=== PATIENT | male | born 1935 | race Caucasian/White ===

== ENCOUNTER 2020-09-04 12:30 | Emergency (ER) | payer OTHER ==
--- OUTSIDE RECORDS SUMMARY | 2020-09-04 12:32 | XMS REPORT | Continuity of Care Document ---
:[address] [facility] t Address [address] [place] [address] Care Team Providers Name Role Phone Unavailable Unavailable Unavailable Payers Payer Name Policy Type Policy Number Effective Date Expiration Date S ource Problems This patient has no known problems. Allergies, Adverse Reactions, Alerts Allergy Allergy Status Severity Reaction(s) Onset Inactive Treating Comm ents Source Name Type Date Date Clinician erythrom DA [facility] [place] 00:[facility]: [address] [place] Active [place] [facility] ins 4-13 [place] 00:00: [address] [place] [facility] 4-13 Clear 00:00: [address] azithrom [place] [facility] 4-[facility] Clear 00:00: [address] Medications This patient has no known medications. Procedures This patient has no known procedures. Results Test Description Test Time Test Comments Results Result Comments Source BASIC METABOLIC PANEL 2020-03-01 05:38:00 Test Item Value Reference Range Interpretation Comme nts SODIUM (test code = NA) 136 MMOL/L 137-145 L POTASSIUM (test code = K) 4.0 MMOL/L 3.5-5.1 N CHLORIDE (test code = CL) 108 MMOL/L 98-107 H CARBON DIOXIDE (test code = CO2) 23 MMOL/L 22-30 N ANION GAP (test code = GAP) 9 MMOL/L 14-24 L GLUCOSE (test code = GLU) 103 MG/DL 74-106 N BLOOD UREA NITROGEN (test code = 19 MG/DL 9-20 BUN) GLOMERULAR FILTRATION RATE (test > 60 Reporting units: ml/min/1.73 code = GFR) m2 (Modified M DRD Formula)Referen ce Range: > or = 60 ml/min/1.7 3 m2 CREATININE (test code = CREAT) 1.10 MG/DL 0.66-1.25 N CALCIUM (test code = CA) 9.2 MG/DL 8.4-10.2 N BASIC METABOLIC [id number] 05:20:00 Test Item Value Reference Range Interpretation Comments SODIUM (test code = 136 MMOL/L 137-145 L NA) POTASSIUM (test code = 4.0 MMOL/L 3.5-5.1 N K) CHLORIDE (test code = 108 MMOL/L 98-107 H CL) CARBON DIOXIDE (test MMOL/L 22-30 code = CO2) GLUCOSE (test code = MG/DL 74-106 GLU) BLOOD UREA NITROGEN MG/DL 9-20 (test code = BUN) GLOMERULAR FILTRATION > 60 Report ing units: RATE (test code = GFR) ml/mi n/1.73 m2 (Modified MDRD Formula)Referen ce Range: > or = 6 0 ml/min/1.73 m2 CREATININE (test code 1.10 MG/DL 0.66-1.25 N = CREAT) CALCIUM (test code = MG/DL 8.7-9.7 CA) BASIC METABOLIC [id number] 05:18:00 Test Item Value Reference Range Interpretation Comments SODIUM (test code = NA) 136 MMOL/L 137-145 L POTASSIUM (test code = K) 4.0 MMOL/L 3.5-5.1 N CHLORIDE (test code = CL) 108 MMOL/L 98-107 H CARBON DIOXIDE (test code = CO2) MMOL/L 22-30 GLUCOSE (test code = GLU) MG/DL 74-106 BLOOD UREA NITROGEN (test code = MG/DL 9-20 BUN) GLOMERULAR FILTRATION RATE (test code = GFR) CREATININE (test code = CREAT) MG/DL 0.66-1.25 CALCIUM (test code = CA) MG/DL 8.7-9.7 BASIC METABOLIC [id number] 05:17:00 Test Item Value Reference Range Interpretation Comments SODIUM (test code = NA) 136 MMOL/L 137-145 L POTASSIUM (test code = K) MMOL/L 3.5-5.1 CHLORIDE (test code = CL) 108 MMOL/L 98-107 H CARBON DIOXIDE (test code = CO2) MMOL/L 22-30 GLUCOSE (test code = GLU) MG/DL 74-106 BLOOD UREA NITROGEN (test code = MG/DL 9-20 BUN) GLOMERULAR FILTRATION RATE (test code = GFR) CREATININE (test code = CREAT) MG/DL 0.66-1.25 CALCIUM (test code = CA) MG/DL 8.7-9.7 CBC W/AUTO [id number] 04:58:00 Test Item Value Reference Range Interpretation Comments WHITE BLOOD CELL (test code = 8.8 K/MM3 3.8-9.8 N WBC) RED BLOOD CELL (test code = 4.12 M/MM3 3.95-5.67 N RBC) HEMOGLOBIN (test code = HGB) 13.1 G/DL 12.4-16.7 N HEMATOCRIT (test code = HCT) 39.2 % 35.9-49.5 N MEAN CELL VOLUME (test code = 95 fL 81.7-96.1 N MCV) MEAN CELL HGB (test code = MCH) 31.8 pg 27.6-33.2 N MEAN CELL HGB CONCETRATION 33.4 % 32.9-35.5 N (test code = MCHC) RED CELL DISTRIBUTION WIDTH 12.7 % 12.1-15.2 N (test code = RDW) PLATELET COUNT (test code = 242 K/MM3 129-368 N PLT) MEAN PLATELET VOLUME (test code 10.6 fl 7.4-10.4 H = MPV) NEUTROPHIL % (test code = NT%) 74.6 % 43-75 N IMMATURE GRANULOCYTE % (test 0.3 % 0.0-2.0 N code = IG%) LYMPHOCYTE % (test code = LY%) 13.1 % 14-44 L MONOCYTE % (test code = MO%) 9.7 % 4-13 N EOSINOPHIL % (test code = EO%) 2.0 % 0-6 N BASOPHIL % (test code = BA%) 0.3 % 0-2 N NUCLEATED RBC % (test code = 0.0 % 0-1.0 N NRBC%) NEUTROPHIL # (test code = NT#) 6.58 K/mm3 2.0-7.6 N IMMATURE GRANULOCYTE # (test 0.03 x10 3/uL 0-0.03 N code = IG#) LYMPHOCYTE # (test code = LY#) 1.16 K/mm3 1.0-3.8 N MONOCYTE # (test code = MO#) 0.86 K/mm3 0.1-0.8 H EOSINOPHIL # (test code = EO#) 0.18 K/mm3 0.0-0.2 N BASOPHIL # (test code = BA#) 0.03 K/mm3 0.0-0.2 N NUCLEATED RBC # (test code = 0.00 K/mm3 0.0-0.1 N NRBC#) [id number] 09:58:00 Test Item Value Reference Range Interpretation Comments ACT-ISTAT (test code = ACTI) 213 SEC 74-137 H PROTHROMBIN [id number] 08:18:00 Test Item Value Reference Range Interpretation Comments PROTHROMBIN TIME 12.1 SECONDS 9.4-12.5 N PATIENT (test code = PTP) INTERNATIONAL NORMAL 1.1 The INR is to be RATIO (test code = used only for INR) monitoring oral anticoagulantth erap y. INDICATION I NR VALUE ---- ---- ---- -------1. Prophylaxis, de ep venous thrombos is, including hig h risk surgery. 2.0 - 3.0 2. Prophylaxis, de ep venous thrombos is, hip surgery, treatment for d eep venous thrombosis or pulmonary prevention of systemic emboli sm in patients wit h valvular heart disease, atrial fibrillation, tissue heart va lve, or acute myocar dial infarction. 2.0 - 3 .0 3. Mechanical prosthesis hear t valves, recurrent syste gloria embolism. 3.0 - 4.5 PTT [id number] 08:18:00 Test Item Value Reference Range Interpretation Comments PTT ACTIVATED (test code = APTT) 16.6 SECONDS 25.1-36.5 L BASIC METABOLIC [id number] 07:23:00 Test Item Value Reference Range Interpretation Comments SODIUM (test code = 138 MMOL/L 137-145 N NA) POTASSIUM (test code = 4.3 MMOL/L 3.5-5.1 N K) CHLORIDE (test code = 105 MMOL/L 98-107 N CL) CARBON DIOXIDE (test 26 MMOL/L 22-30 N code = CO2) GLUCOSE (test code = 113 MG/DL 74-106 H GLU) BLOOD UREA NITROGEN 25 MG/DL 9-20 H (test code = BUN) GLOMERULAR FILTRATION 57 Report ing units: RATE (test code = GFR) ml/mi n/1.73 m2 (Modified MDRD Formula)Referen ce Range: > or = 6 0 ml/min/1.73 m2 CREATININE (test code 1.20 MG/DL 0.66-1.25 N = CREAT) CALCIUM (test code = 9.2 MG/DL 8.4-10.2 N CA) LIPID PROFILE (CORONARY RISK)2020-02-29 07:23:00 Test Item Value Reference Range Interpretation Comments TRIGLYCERIDES (test 137 MG/DL TRIGLYCE RIDES code = TRIG) REFERENCE RANGE:Normal: < 150 mg/dLBorderline High: 150-199 mg/dLHi gh: 200-499 mg/dLVe ry High: >=500 mg/ dL CHOLESTEROL (test code 217 MG/DL <200 = CHOL) HDL CHOLESTEROL (test 51 MG/DL 40-59 N code = HDL) LIPOPROTEIN LDL (test 150 MG/DL 0-99 H code = LDL) OPTIMAL........ .<100 mg/dLNEAR OPTIMAL/ABOVE OPTIMAL........ .100-12 9 mg/dL BORDERLINE HIGH.........13 0-159 mg/dL HIGH.........16 0-189 mg/dL VERY HIGH...... ...>/= 190 mg/dL [id number] 07:23:00 Test Item Value Reference Range Interpretation Comments MAGNESIUM (test code = MAG) 2.1 MG/DL 1.6-2.3 N BASIC METABOLIC [id number] 07:13:00 Test Item Value Reference Range Interpretation Comments SODIUM (test code = 138 MMOL/L 137-145 N NA) POTASSIUM (test code = 4.3 MMOL/L 3.5-5.1 N K) CHLORIDE (test code = 105 MMOL/L 98-107 N CL) CARBON DIOXIDE (test 26 MMOL/L 22-30 N code = CO2) GLUCOSE (test code = 113 MG/DL 74-106 H GLU) BLOOD UREA NITROGEN 25 MG/DL 9-20 H (test code = BUN) GLOMERULAR FILTRATION 57 Report ing units: RATE (test code = GFR) ml/mi n/1.73 m2 (Modified MDRD Formula)Referen ce Range: > or = 6 0 ml/min/1.73 m2 CREATININE (test code 1.20 MG/DL 0.66-1.25 N = CREAT) CALCIUM (test code = 9.2 MG/DL 8.4-10.2 N CA) LIPID PROFILE (CORONARY RISK)2020-02-29 07:13:00 Test Item Value Reference Range Interpretation Comments TRIGLYCERIDES (test 137 MG/DL TRIGLYCE RIDES code = TRIG) REFERENCE RANGE:Normal: < 150 mg/dLBorderline High: 150-199 mg/dLHi gh: 200-499 mg/dLVe ry High: >=500 mg/ dL CHOLESTEROL (test code 217 MG/DL <200 = CHOL) HDL CHOLESTEROL (test 51 MG/DL 40-59 N code = HDL) LIPOPROTEIN LDL (test MG/DL 0-99 code = LDL) [id number] 07:13:00 Test Item Value Reference Range Interpretation Comments MAGNESIUM (test code = MAG) 2.1 MG/DL 1.6-2.3 N BASIC METABOLIC [id number] 07:12:00 Test Item Value Reference Range Interpretation Comments SODIUM (test code = 138 MMOL/L 137-145 N NA) POTASSIUM (test code = 4.3 MMOL/L 3.5-5.1 N K) CHLORIDE (test code = 105 MMOL/L 98-107 N CL) CARBON DIOXIDE (test 26 MMOL/L 22-30 N code = CO2) GLUCOSE (test code = 113 MG/DL 74-106 H GLU) BLOOD UREA NITROGEN 25 MG/DL 9-20 H (test code = BUN) GLOMERULAR FILTRATION 57 Report ing units: RATE (test code = GFR) ml/mi n/1.73 m2 (Modified MDRD Formula)Referen ce Range: > or = 6 0 ml/min/1.73 m2 CREATININE (test code 1.20 MG/DL 0.66-1.25 N = CREAT) CALCIUM (test code = 9.2 MG/DL 8.4-10.2 N CA) LIPID PROFILE (CORONARY RISK)2020-02-29 07:12:00 Test Item Value Reference Range Interpretation Comments TRIGLYCERIDES (test 137 MG/DL TRIGLYCE RIDES code = TRIG) REFERENCE RANGE:Normal: < 150 mg/dLBorderline High: 150-199 mg/dLHi gh: 200-499 mg/dLVe ry High: >=500 mg/ dL CHOLESTEROL (test code 217 MG/DL <200 = CHOL) HDL CHOLESTEROL (test MG/DL 40-59 code = HDL) LIPOPROTEIN LDL (test MG/DL 0-99 code = LDL) [id number] 07:12:00 Test Item Value Reference Range Interpretation Comments MAGNESIUM (test code = MAG) 2.1 MG/DL 1.6-2.3 N BASIC METABOLIC [id number] 07:11:00 Test Item Value Reference Range Interpretation Comments SODIUM (test code = 138 MMOL/L 137-145 N NA) POTASSIUM (test code = 4.3 MMOL/L 3.5-5.1 N K) CHLORIDE (test code = 105 MMOL/L 98-107 N CL) CARBON DIOXIDE (test MMOL/L 22-30 code = CO2) GLUCOSE (test code = MG/DL 74-106 GLU) BLOOD UREA NITROGEN MG/DL 9-20 (test code = BUN) GLOMERULAR FILTRATION 57 Report ing units: RATE (test code = GFR) ml/mi n/1.73 m2 (Modified MDRD Formula)Referen ce Range: > or = 6 0 ml/min/1.73 m2 CREATININE (test code 1.20 MG/DL 0.66-1.25 N = CREAT) CALCIUM (test code = MG/DL 8.7-9.7 CA) LIPID PROFILE (CORONARY RISK)2020-02-29 07:11:00 Test Item Value Reference Range Interpretation Comments TRIGLYCERIDES (test code = TRIG) MG/DL CHOLESTEROL (test code = CHOL) 217 MG/DL <200 HDL CHOLESTEROL (test code = HDL) MG/DL 40-59 LIPOPROTEIN LDL (test code = LDL) MG/DL 0-99 [id number] 07:11:00 Test Item Value Reference Range Interpretation Comments MAGNESIUM (test code = MAG) MG/DL 1.6-2.3 BASIC METABOLIC [id number] 07:09:00 Test Item Value Reference Range Interpretation Comments SODIUM (test code = NA) 138 MMOL/L 137-145 N POTASSIUM (test code = K) 4.3 MMOL/L 3.5-5.1 N CHLORIDE (test code = CL) 105 MMOL/L 98-107 N CARBON DIOXIDE (test code = CO2) MMOL/L 22-30 GLUCOSE (test code = GLU) MG/DL 74-106 BLOOD UREA NITROGEN (test code = MG/DL 9-20 BUN) GLOMERULAR FILTRATION RATE (test code = GFR) CREATININE (test code = CREAT) MG/DL 0.66-1.25 CALCIUM (test code = CA) MG/DL 8.7-9.7 LIPID PROFILE (CORONARY RISK)2020-02-29 07:09:00 Test Item Value Reference Range Interpretation Comments TRIGLYCERIDES (test code = TRIG) MG/DL CHOLESTEROL (test code = CHOL) MG/DL <200 HDL CHOLESTEROL (test code = HDL) MG/DL 40-59 LIPOPROTEIN LDL (test code = LDL) MG/DL 0-99 [id number] 07:09:00 Test Item Value Reference Range Interpretation Comments MAGNESIUM (test code = MAG) MG/DL 1.6-2.3 Novel Coronavirus 07:06:00 Test Item Value Reference Range Interpretation Comments Novel Coronavirus Negative Negative Positive r esults are 2019 Inhouse (test indicativ e of the presence code = [id number]) ofSARS-CoV -2 RNA, clinical correlation wit h patient historyand othe r diagnostic info rmation is necessary to determinepatien t infection status. Positiv e results do not rule out bacterial infection or co -infection with other viru ses. Negative result s do not preclude SARS-C oV-2 infection andsh ould not be used as the marilyn e basis for patient managementdecis ions. Negative result s must be combined with otherclinical observations, p atient history, and epidemiological information . Detection of SARS-CoV-2 RNA may be affe cted bysample collec tion methods, storag e conditions, and /or stageof infection. Pauly l RNA mutations, vacc inations, antiviraltherap eutics, antibiotics, chemotherapeuti c orimmunosuppres jeronimo drugs have not been e valuated for effectson d etection. Results are for the identification of SARS-CoV-2 RNA usingthe Abel M2000 Sy stem under the FDA Emergen cy UseAuthorizatio n. The testing is perf ormed by personneltraine d in the procedures for the Abel M2000 molecular diagnostic SARS-CoV-2 assa y in vitro. Novel Coronavirus 07:06:00 Test Item Value Reference Range Interpretation Comments Novel Coronavirus Negative Negative Positive r esults are 2019 Inhouse (test indicativ e of the presence code = [id number]) ofSARS-CoV -2 RNA, clinical correlation wit h patient historyand othe r diagnostic info rmation is necessary to determinepatien t infection status. Positiv e results do not rule out bacterial infection or co -infection with other viru ses. Negative result s do not preclude SARS-C oV-2 infection andsh ould not be used as the marilyn e basis for patient managementdecis ions. Negative result s must be combined with otherclinical observations, p atient history, and epidemiological information . Detection of SARS-CoV-2 RNA may be affe cted bysample collec tion methods, storag e conditions, and /or stageof infection. Pauly l RNA mutations, vacc inations, antiviraltherap eutics, antibiotics, chemotherapeuti c orimmunosuppres jeronimo drugs have not been e valuated for effectson d etection. Results are for the identification of SARS-CoV-2 RNA usingthe Abel M2000 Sy stem under the FDA Emergen cy UseAuthorizatio n. The testing is perf ormed by personneltraine d in the procedures for the Abel M2000 molecular diagnostic SARS-CoV-2 assa y in vitro. CBC W/AUTO [id number] 07:02:00 Test Item Value Reference Range Interpretation Comments WHITE BLOOD CELL (test code = 7.1 K/MM3 3.8-9.8 N WBC) RED BLOOD CELL (test code = 4.07 M/MM3 3.95-5.67 N RBC) HEMOGLOBIN (test code = HGB) 12.9 G/DL 12.4-16.7 N HEMATOCRIT (test code = HCT) 39.1 % 35.9-49.5 N MEAN CELL VOLUME (test code = 96 fL 81.7-96.1 N MCV) MEAN CELL HGB (test code = MCH) 31.7 pg 27.6-33.2 N MEAN CELL HGB CONCETRATION 33.0 % 32.9-35.5 N (test code = MCHC) RED CELL DISTRIBUTION WIDTH 12.7 % 12.1-15.2 N (test code = RDW) PLATELET COUNT (test code = 242 K/MM3 129-368 N PLT) MEAN PLATELET VOLUME (test code 10.7 fl 7.4-10.4 H = MPV) NEUTROPHIL % (test code = NT%) 68.7 % 43-75 N IMMATURE GRANULOCYTE % (test 0.4 % 0.0-2.0 N code = IG%) LYMPHOCYTE % (test code = LY%) 19.2 % 14-44 N MONOCYTE % (test code = MO%) 9.3 % 4-13 N EOSINOPHIL % (test code = EO%) 1.8 % 0-6 N BASOPHIL % (test code = BA%) 0.6 % 0-2 N NUCLEATED RBC % (test code = 0.0 % 0-1.0 N NRBC%) NEUTROPHIL # (test code = NT#) 4.87 K/mm3 2.0-7.6 N IMMATURE GRANULOCYTE # (test 0.03 x10 3/uL 0-0.03 N code = IG#) LYMPHOCYTE # (test code = LY#) 1.36 K/mm3 1.0-3.8 N MONOCYTE # (test code = MO#) 0.66 K/mm3 0.1-0.8 N EOSINOPHIL # (test code = EO#) 0.13 K/mm3 0.0-0.2 N BASOPHIL # (test code = BA#) 0.04 K/mm3 0.0-0.2 N NUCLEATED RBC # (test code = 0.00 K/mm3 0.0-0.1 N NRBC#) Coronavirus 2019 nCoV [id number] 06:11:00 Test Item Value Reference Range Interpretation Comments Coronavirus 2019 nCoV Bedside (test Negative Negative code = COVNONPUIBED) Has this test been approved(Y/N)? YES
--- NOTE | 2020-09-04 13:30 | RAD REPORT ---
EXAM DESCRIPTION: CT - [id number] - 09/04/2020 12:58 pm CLINICAL HISTORY: Fall injury, facial injury, patient on anticoagulation therapy COMPARISON: None TECHNIQUE: Axial 5 mm thick images of the head were obtained. Axial 2 mm thick images of the cervic al spine were obtained with sagittal and coronal reconstruction images generated and reviewed. All CT scans are performed using dose optimization technique as appropriate and may include automated exposure control or mA/KV adjustment according to patient size. FINDINGS: No intracranial hemorrhage, mass, edema or acute intracranial finding. No suspicion for ac samantha infarction. No cortical edema or sulcal effacement. Atrophy and chronic ischemic changes are pres ent. Ventricles are in proportion to the amount of volume loss. Arterial and physiologic calcificatio ns are present. Mastoid air cells are clear. Globes, facial bones and sinuses are separately detailed . Severe degenerative change present at the dens C1 level. Degenerative in cystic changes are seen in t he dens. No fracture or pathologic change identifiable. 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 Moderate ly severe degenerative change from the same processes at C4-5. Wedge compression of C5-6 is present. Posterior wall height is preserved. No acute fracture line seen. This is probably chronic. Moderate s everity foraminal stenosis present at C5-6. The right lamina of C6 is disrupted with margins corticat ed. This could be postsurgical history that was not stated in the history or possibly an old trauma o r congenital variant. Central canal detail is inherently limited. No paraspinal mass or hematoma. IMPRESSION: Patient has atrophy and chronic ischemic change with no acute intracranial finding. Facial bones, sinuses and orbits are separately detailed. Severe cervical spine degenerative changes are present as detailed. Wedge compression of C5 is favore d to be chronic. An acute fracture line is not seen in the C5 vertebral body.
--- NOTE | 2020-09-04 13:32 | RAD REPORT ---
EXAM DESCRIPTION: CT - Facial Bones W/ Mpr - 09/04/2020 12:58 pm CLINICAL HISTORY: Fall, facial trauma COMPARISON: None. TECHNIQUE: Axial 2 millimeter thick images of the facial bones were obtained with sagittal and coron al reconstruction imaging. All CT scans are performed using dose optimization technique as appropriate and may include automated exposure control or mA/KV adjustment according to patient size. FINDINGS: Moderately large scalp hematoma is seen in the soft tissues overlying the Reidel bone. No foreign body seen. The underlying frontal bone and frontal sinuses are intact. Patient has nasal bon e fractures without significant distraction or angulation component. Right deviation of the nasal sep otto is present without a nasal septum fracture confirmed. Hemorrhagic material present in the nasal p assages. No other fracture changes identified. No air-fluid levels in the paranasal sinuses. Mastoid air cells are clear. No skullbase fracture. Globe and orbital contents show no suspicious findings. IMPRESSION: Moderately large frontal scalp hematoma with underlying frontal bone and sinus is intact . Comminuted nasal bone fractures without displacement or angulation of any measurable significance. Na jose luis septum deviation is present to the right without identifiable fracture.
[2020-09-04] MEDS ORDERED: FENTANYL CITR 100 MCG/2 ML ONE (14:05)
[2020-09-04] MEDS ORDERED: ONDANSETRON 4 MG/2 ML VIAL ONE (14:05)
--- NOTE | 2020-09-04 14:12 | EDPHYS ---
Physician Documentation [facility] Name: Wale Willson Age: 85 yrs Sex: Male : 1935 Arrival Date: 09/04/2020 Time: 12:40 Bed 4 Private MD: ED Physician Von Piña HPI: 09/04 12:48 This 85 yrs old Male presents to ER via EMS with complaints of Fall Injury. pm1 12:48 Details of fall: The patient fell from an upright position, while walking. Onset: The pm1 symptoms/episode began/occurred just prior to arrival. Associated injuries: The patient sustained nose and left hand. Severity of symptoms: in the emergency department the symptoms have improved. The patient has not experienced similar symptoms in the past. Patient was walking out to his patio and tripped on the doorsill. Patient landed with his hands out in front of him and hit his nose. reports that his nose was shifted to the left and the patient self reduced it at home. No LOC, headache, or neck pain. Patient arrived with C-collar. Historical: - Allergies: 12:45 PENICILLINS; ph 12:45 erythromycin base; ph 14:44 Codeine; ph - Home Meds: 12:47 Aspirin Oral [Active]; Plavix Oral [Active]; ph - PMHx: 12:45 Hypertension; Hyperlipidemia; ph - Immunization history: Last tetanus immunization: unknown. - Social history:: Smoking status: Patient denies any tobacco usage or history of. ROS: 12:52 Constitutional: Negative for fever, chills, and weight loss, Eyes: Negative for injury, pm1 pain, redness, and discharge, Neck: Negative for injury, pain, and swelling. 12:52 Cardiovascular: Negative for chest pain, palpitations, and edema, Respiratory: Negative for shortness of breath, cough, wheezing, and pleuritic chest pain, Abdomen/GI: Negative for abdominal pain, nausea, vomiting, diarrhea, and constipation, Back: Negative for injury and pain, MS/Extremity: Negative for injury and deformity, Skin: Negative for injury, rash, and discoloration, Neuro: Negative for headache, weakness, numbness, tingling, and seizure. 12:52 ENT: Positive for swelling to nose and abrasions on bridge, Negative for ear pain, dental pain, pain. Exam: 12:52 Constitutional: This is a well developed, well nourished patient who is awake, alert, pm1 and in no acute distress. 12:52 Back: No spinal tenderness. No costovertebral tenderness. Full range of motion. Skin: Warm, dry with normal turgor. Normal color with no rashes, no lesions, and no evidence of cellulitis. 12:52 Head/face: Noted is no obvious of injury or deformity except abrasion(s), that are mild, of the bridge of nose, swelling, that is mild, of the forehead and nose. 12:52 ENT: Nose: External nose: abrasion is noted, swelling is noted, Nasal septum: no septal hematoma appreciated, bleeding, is noted from both nares, and is minimal, no septal hematoma is appreciated. 12:52 Cardiovascular: Exam negative for acute changes, Rate: normal, Rhythm: regular, Pulses: no pulse deficits are appreciated. 12:52 Respiratory: Exam negative for acute changes, respiratory distress, shortness of breath. 12:52 Abdomen/GI: Exam negative for acute changes, Inspection: abdomen appears normal, Palpation: abdomen is soft and non-tender, in all quadrants. 12:52 Musculoskeletal/extremity: Extremities: grossly normal except: noted in the dorsal aspect of proximal phalanx of left ring finger and dorsal aspect of proximal phalanx of left little finger: swelling, There is no evidence of tenderness, the left hand Sensation intact. 13:33 Neck: C-spine: C-collar is removed, after CT scanning reveals no obvious unstable pm1 abnormality, vertebral tenderness, is not appreciated. Vital Signs: 12:43 BP 132 / 69; Pulse 71; Resp 18; Temp 97.5; Pulse Ox 98% on R/A; Weight 88.45 kg; Height ph 5 ft. 9 in. (175.26 cm); Pain 0/10; 13:56 BP 133 / 78; Pulse 64; Resp 18; Pulse Ox 100% on R/A; ph 14:45 BP 155 / 77; Pulse 70; Resp 18; Temp 97.8; Pulse Ox 99% on R/A; ph 12:43 Body Mass Index 28.80 (88.45 kg, 175.26 cm) ph [place] Coma Score: 12:43 Eye Response: spontaneous(4). Verbal Response: oriented(5). Motor Response: obeys ph commands(6). Total: 15. 13:56 Eye Response: spontaneous(4). Verbal Response: oriented(5). Motor Response: obeys ph commands(6). Total: 15. 14:45 Eye Response: spontaneous(4). Verbal Response: oriented(5). Motor Response: obeys ph commands(6). Total: 15. Trauma Score (Adult): 12:43 Eye Response: spontaneous(1); Verbal Response: oriented(1); Motor Response: obeys ph commands(2); Systolic BP: > 89 mm Hg(4); Respiratory Rate: 10 to 29 per min(4); Sherri Score: 15; Trauma Score: 12 13:56 Eye Response: spontaneous(1); Verbal Response: oriented(1); Motor Response: obeys ph commands(2); Systolic BP: > 89 mm Hg(4); Respiratory Rate: 10 to 29 per min(4); [place] Score: 15; Trauma Score: 12 14:45 Eye Response: spontaneous(1); Verbal Response: oriented(1); Motor Response: obeys ph commands(2); Systolic BP: > 89 mm Hg(4); Respiratory Rate: 10 to 29 per min(4); [place] Score: 15; Trauma Score: 12 Procedures: 14:36 Reduction: of the MCP of left little finger, using manipulation, Immobilized with ulnar pm1 gutter splint. Patient tolerated well. 14:36 Splinting: Splint applied to left ring finger and left little finger using Orthoglass pm1 splint, applied by myself. tech. Examined by me, post splint application: neurovascular intact, 2+ distal pulses palpable, brisk capillary refill noted, Patient tolerated well. MDM: 12:47 Patient medically screened. pm1 14:09 Data reviewed: vital signs. Data interpreted: Pulse oximetry: on room air is 100 %. pm1 Interpretation: normal. Counseling: I had a detailed discussion with the patient and/or guardian regarding: the historical points, exam findings, and any diagnostic results supporting the discharge/admit diagnosis, radiology results, the need for outpatient follow up, for definitive care, an ENT specialist, a hand specialist, to return to the emergency department if symptoms worsen or persist or if there are any questions or concerns that arise at home. 14:56 ED course: patient with allergy to PCN and macrolides. Bactrim would not provide pm1 adequate coverage. Will discharge home with quinolone. 09/04 12:48 Order name: CT Head C Spine; Complete Time: 13:31 pm1 09/04 12:48 Order name: CT Facial Bones W/O Con; Complete Time: 13:46 pm1 09/04 13:10 Order name: Hand Left 3 View XRAY; Complete Time: 14:35 pm1 09/04 14:07 Order name: Dermabond; Complete Time: 14:42 pm1 09/04 14:07 Order name: Ulnar Gutter splint; Complete Time: 14:42 pm1 Administered Medications: 13:55 Drug: fentaNYL (PF) 25 mcg Route: IVP; Site: right antecubital; ph 15:06 Follow up: Response: No adverse reaction; RASS: Alert and Calm (0) ph 13:55 Drug: Zofran (Ondansetron) 4 mg Route: IVP; Site: right antecubital; ph 15:06 Follow up: Response: No adverse reaction ph 14:14 Drug: Tetanus-Diphtheria Toxoid Adult 0.5 ml {Soil Surveyor: The car easily beat. Exp: ph 12/19/2021. Lot #: [id number]. } Route: IM; Site: right deltoid; 15:06 Follow up: Response: No adverse reaction ph 14:21 Drug: fentaNYL (PF) 25 mcg Route: IVP; Site: right antecubital; em 15:07 Follow up: Response: No adverse reaction; Pain is decreased; RASS: Alert and Calm (0) ph Disposition: 16:21 Co-signature as Attending Physician, Von Piña MD I agree with the assessment and tw4 plan of care. Disposition: 09/04/20 14:11 Discharged to Home. Impression: Fracture of nasal bones, Fracture of unspecified phalanx of left ring finger, Fracture of unspecified phalanx of left little finger. - Condition is Stable. - Discharge Instructions: Cast or Splint Care, Adult, Finger Fracture, Fall Prevention in the Home, Nasal Fracture. - Prescriptions for Tramadol 50 mg Oral Tablet - take 1 tablet by ORAL route every 8 hours as needed; 12 tablet. Cipro 500 mg Oral Tablet - take 1 tablet by ORAL route every 12 hours for 7 days; 14 tablet. - Medication Reconciliation Form, Thank You Letter, Antibiotic Education, Prescription Opioid Use form. - Follow up: Emergency Department; When: As needed; Reason: Worsening of condition. Follow up: Private Physician; When: 2 - 3 days; Reason: Recheck today's complaints, Continuance of care, Re-evaluation by your physician. - Problem is new. - Symptoms have improved. Signatures: Dispatcher [employer] EDJudd Rodriguez, RAI ATWOOD Marcie Cavazos RN RN Junaid Bro, CARBONATING STONE CLEANER CARBONATING STONE CLEANER pm1 Von Piña MD MD tw4 Corrections: (The following items were deleted from the chart) 15:06 14:11 09/04/2020 14:11 Discharged to Home. Impression: Fracture of nasal bones; ph Fracture of unspecified phalanx of left ring finger; Fracture of unspecified phalanx of left little finger. Condition is Stable. Forms are Medication Reconciliation Form, Thank You Letter, Antibiotic Education, Prescription Opioid Use. Follow up: Emergency Department; When: As needed; Reason: Worsening of condition. Follow up: Private Physician; When: 2 - 3 days; Reason: Recheck today's complaints, Continuance of care, Re-evaluation by your physician. Problem is new. Symptoms have improved. pm1
--- NOTE | 2020-09-04 14:12 | ER ---
Nurse's Notes [facility] Name: Wale Willson Age: 85 yrs Sex: Male : 1935 Arrival Date: 09/04/2020 Time: 12:40 Bed 4 Private MD: Diagnosis: Fracture of nasal bones;Fracture of unspecified phalanx of left ring finger;Fracture of unspecified phalanx of left little finger Presentation: 09/04 12:41 Chief complaint: EMS states: Pt was walking out of home and tripped on a step, fell ph face first and attempted to catch himself w/ his L hand, swelling to nose and forehead, nose actively bleeding on scene so packed R nare w/ gauze, pt denies LOC, does take ASA and Plavix. Care prior to arrival: Bleeding of injury controlled. Cervical collar in place. IV initiated. 20 GA, in the right antecubital area. Mechanism of Injury: Fall from standing position. Trauma event details: Injury occurred in the [facility], Injury occurred: at home. Injury occurred: September 04, 2020. 12:41 Acuity: SAILAJA 2 ph 12:41 Method Of Arrival: EMS: [facility] ph 12:50 Coronavirus screen: Client denies travel out of the [place] in the last 14 days. At this ph time, the client does not indicate any symptoms associated with coronavirus-19. Ebola Screen: No symptoms or risks identified at this time. Initial Sepsis Screen: Does the patient meet any 2 criteria? No. Patient's initial sepsis screen is negative. Does the patient have a suspected source of infection? No. Patient's initial sepsis screen is negative. Risk Assessment: Do you want to hurt yourself or someone else? Patient reports no desire to harm self or others. Onset of symptoms was September 04, 2020. Trauma Activation: Alert Physician: ED Physician; Name: ; Notified At: ; Arrived At: Physician: General Surgeon; Name: ; Notified At: ; Arrived At: Physician: Radiology; Name: ; Notified At: ; Arrived At: Physician: Respiratory; Name: ; Notified At: ; Arrived At: Physician: Lab; Name: ; Notified At: ; Arrived At: Historical: - Allergies: 12:45 PENICILLINS; ph 12:45 erythromycin base; ph 14:44 Codeine; ph - Home Meds: 12:47 Aspirin Oral [Active]; Plavix Oral [Active]; ph - PMHx: 12:45 Hypertension; Hyperlipidemia; ph - Immunization history: Last tetanus immunization: unknown. - Social history:: Smoking status: Patient denies any tobacco usage or history of. Screenin:50 Abuse screen: Denies threats or abuse. Denies injuries from another. Nutritional ph screening: No deficits noted. Tuberculosis screening: No symptoms or risk factors identified. Fall Risk Fall in past 12 months (25 points). No secondary diagnosis (0 pts). IV access (20 points). Ambulatory Aid- None/Bed Rest/Nurse Assist (0 pts). Gait- Normal/Bed Rest/Wheelchair (0 pts) Mental Status- Oriented to own ability (0 pts). Primary Survey: 12:47 NO uncontrolled hemorrhage observed. A: The patient is alert. Airway: patent, No ph supplemental oxygen in use on arrival. Oral cavity: clear. Breathing/Chest: Respiratory pattern: regular, Respiratory effort: spontaneous, unlabored, Chest inspection: symmetrical rise and fall of the chest. Circulation: Skin color: pink, Skin temperature: warm, dry. Disability Alert. Exposure/Environment: Obvious injury(ies) are noted at this time: swelling to nose and forehead, bleeding from R nare, bruising to L hand. 14:35 Reassessment Airway Airway Patent Breathing/Chest Respiratory pattern Regular ph Respiratory effort Spontaneous Unlabored Chest inspection Symmetrical Disability Alert. Secondary Survey: 12:49 HEENT: Head Other Swelling to forehead Nose: bleeding noted to right nare. deformity ph noted bridge of nose and apex of the nose. Musculoskeletal: Circulation, motion, and sensation intact. Range of motion: intact in all extremities. Injury Description: Bruise sustained to left hand. Assessment: 12:52 General: Appears in no apparent distress. comfortable, well groomed, Behavior is calm, ph cooperative, appropriate for age. Pain: Denies pain. Neuro: Level of Consciousness is awake, alert, obeys commands, Oriented to person, place, time, situation. EENT: Nares with bleeding noted on right. Cardiovascular: Capillary refill < 3 seconds in bilateral fingers Patient's skin is warm and dry. Respiratory: Airway is patent Respiratory effort is even, unlabored. GI: No signs and/or symptoms were reported involving the gastrointestinal system. Derm: Skin is healthy with good turgor, Skin is pink, warm \T\ dry. Derm: Bruising that is on left hand. Musculoskeletal: Circulation, motion, and sensation intact. Range of motion: intact in all extremities, Swelling present in forehead and nose. Injury Description: Abrasion sustained to forehead. 12:55 Reassessment: pt taken to CT. ph 13:55 Reassessment: Patient appears in no apparent distress at this time. Patient and/or ph family updated on plan of care and expected duration. Pain level reassessed. Patient is alert, oriented x 3, equal unlabored respirations, skin warm/dry/pink. 14:15 Reassessment: Patient appears in no apparent distress at this time. Patient and/or ph family updated on plan of care and expected duration. Pain level reassessed. Patient is alert, oriented x 3, equal unlabored respirations, skin warm/dry/pink. D/C pending shot time. 14:44 Reassessment: Patient appears in no apparent distress at this time. Patient and/or ph family updated on plan of care and expected duration. Pain level reassessed. Patient is alert, oriented x 3, equal unlabored respirations, skin warm/dry/pink. Vital Signs: 12:43 BP 132 / 69; Pulse 71; Resp 18; Temp 97.5; Pulse Ox 98% on R/A; Weight 88.45 kg; Height ph 5 ft. 9 in. (175.26 cm); Pain 0/10; 13:56 BP 133 / 78; Pulse 64; Resp 18; Pulse Ox 100% on R/A; ph 14:45 BP 155 / 77; Pulse 70; Resp 18; Temp 97.8; Pulse Ox 99% on R/A; ph 12:43 Body Mass Index 28.80 (88.45 kg, 175.26 cm) ph [place] Coma Score: 12:43 Eye Response: spontaneous(4). Verbal Response: oriented(5). Motor Response: obeys ph commands(6). Total: 15. 13:56 Eye Response: spontaneous(4). Verbal Response: oriented(5). Motor Response: obeys ph commands(6). Total: 15. 14:45 Eye Response: spontaneous(4). Verbal Response: oriented(5). Motor Response: obeys ph commands(6). Total: 15. Trauma Score (Adult): 12:43 Eye Response: spontaneous(1); Verbal Response: oriented(1); Motor Response: obeys ph commands(2); Systolic BP: > 89 mm Hg(4); Respiratory Rate: 10 to 29 per min(4); Sherri Score: 15; Trauma Score: 12 13:56 Eye Response: spontaneous(1); Verbal Response: oriented(1); Motor Response: obeys ph commands(2); Systolic BP: > 89 mm Hg(4); Respiratory Rate: 10 to 29 per min(4); [place]ri Score: 15; Trauma Score: 12 14:45 Eye Response: spontaneous(1); Verbal Response: oriented(1); Motor Response: obeys ph commands(2); Systolic BP: > 89 mm Hg(4); Respiratory Rate: 10 to 29 per min(4); [place] Score: 15; Trauma Score: 12 ED Course: 12:40 Patient arrived in ED. sv 12:41 Marcie Cavazos, RN is Primary Nurse. ph 12:43 Triage completed. ph 12:47 Junaid Bro NP is PHCP. pm1 12:47 Von Piña MD is Attending Physician. pm1 12:51 Arm band placed on Patient placed in an exam room, on a stretcher, on pulse oximetry. ph 12:51 Patient has correct armband on for positive identification. Call light in reach. Side ph rails up X2. Pulse ox on. NIBP on. Door closed. Noise minimized. Warm blanket given. 12:52 Patient maintains SpO2 saturation greater than 95% on room air. Thermoregulation: warm ph blanket given to patient. 12:58 CT Head C Spine In Process Unspecified. EDMS 12:58 CT Facial Bones W/O Con In Process Unspecified. EDMS 14:06 Hand Left 3 View XRAY In Process Unspecified. EDMS 14:43 Assist provider with laceration repair on nose that was 2.5 cm. or less using ph Dermabond. Set up tray. Performed by Junaid Bro NP Patient tolerated well. IV discontinued, intact, bleeding controlled, No redness/swelling at site. Pressure dressing applied. Administered Medications: 13:55 Drug: fentaNYL (PF) 25 mcg Route: IVP; Site: right antecubital; ph 15:06 Follow up: Response: No adverse reaction; RASS: Alert and Calm (0) ph 13:55 Drug: Zofran (Ondansetron) 4 mg Route: IVP; Site: right antecubital; ph 15:06 Follow up: Response: No adverse reaction ph 14:14 Drug: Tetanus-Diphtheria Toxoid Adult 0.5 ml {Director Transition: GIGAS. Exp: ph 12/19/2021. Lot #: [id number]. } Route: IM; Site: right deltoid; 15:06 Follow up: Response: No adverse reaction ph 14:21 Drug: fentaNYL (PF) 25 mcg Route: IVP; Site: right antecubital; em 15:07 Follow up: Response: No adverse reaction; Pain is decreased; RASS: Alert and Calm (0) ph Intake: 12:43 PO: 0ml; Total: 0ml. ph 14:45 PO: 0ml; Total: 0ml. ph Output: 12:43 Urine: 0ml; Total: 0ml. ph 14:45 Urine: 0ml; Total: 0ml. ph Outcome: 14:11 Discharge ordered by MD. pm1 15:05 Discharged to home ambulatory, with family. ph 15:05 Condition: good 15:05 Discharge instructions given to patient, Instructed on discharge instructions, follow up and referral plans. medication usage, Demonstrated understanding of instructions, follow-up care, medications, Prescriptions given X 2. 15:06 Patient left the ED. ph 15:08 Patient's length of stay was not longer than 2 hours. ph Signatures: Dispatcher [employer] Laura Jones RN RN sv Munoz, Edgar, RN RN em Hall, Patricia, RN RN ph Marinas, Patrick, DANGELO SCRUM PROJECT MANAGER pm1
--- NOTE | 2020-09-04 14:29 | RAD REPORT ---
EXAM DESCRIPTION: RAD - Hand Left 3 View - 09/04/2020 2:06 pm CLINICAL HISTORY: PAIN, fall, left hand pain COMPARISON: None. FINDINGS: Oblique fractures are present through the base of the fourth and fifth proximal phalanges. The fifth proximal phalanx fracture involves the articular surface. There is a mild dorsal angulatio n of the distal fracture fragment of the fifth finger. No other acute fracture finding seen. IP joint space narrowing and marginal spurring changes are pres ent. Patient is probably fused at the second digit DIP joint. Severe degenerative change present at t he trapezium first metacarpal articulation and the scaphoid trapezoid articulation. No air or foreign body in the soft tissues. IMPRESSION: Fractures of the fourth and fifth proximal phalanges with dorsal angulation of the fifth proximal phalanx distal fracture fragment. Additional prominent bone and joint degenerative change as detailed.
[2020-09-04] MEDS ORDERED: TETANUS & DIPHTHERIA TOX,ADULT 0.5 ML VIAL ONE (14:45)
[2020-09-04] MEDS ORDERED: DERMABOND SKIN ADHESIVE TOP ONE (14:45)
[2020-09-04 15:33] VITALS: BP 155/77; TEMP 97.8; O2SAT 99
== END 2020-09-04 15:06 | disposition home or self-care (01) ==
LOC: ER 12:30
PROC: 0PSQXZZ Reposition Left Metacarpal, External Approach (ICD-10-PCS; principal; 2020-09-04)
PROC: 2W3KX1Z Immobilization of Left Finger using Splint (ICD-10-PCS; 2020-09-04)
PROC: 0JQ10ZZ Repair Face Subcutaneous Tissue and Fascia, Open Approach (ICD-10-PCS; 2020-09-04)
DX: S02.2XXA Fracture of nasal bones, initial encounter for closed fracture (principal); S62.605A Fracture of unspecified phalanx of left ring finger, initial encounter for closed fracture; S62.607A Fracture of unspecified phalanx of left little finger, initial encounter for closed fracture; W01.198A Fall on same level from slipping, tripping and stumbling with subsequent striking against other object, initial encounter; Y93.01 Activity, walking, marching and hiking; Y92.008 Other place in unspecified non-institutional (private) residence as the place of occurrence of the external cause; Z23 Encounter for immunization; I10 Essential (primary) hypertension; E78.5 Hyperlipidemia, unspecified; Z88.0 Allergy status to penicillin; Z88.3 Allergy status to other anti-infective agents; Z88.5 Allergy status to narcotic agent; Z79.01 Long term (current) use of anticoagulants; Z79.82 Long term (current) use of aspirin
CPT/HCPCS: 70450; 72125; 70486; 76377; 73130; 90471; 90714; 96375; 96374; 99284; 26742; 29130; 12011; J3010; J2405; G0390